=== PATIENT | female | born 1985 | race Hispanic/Latino ===

== ENCOUNTER 2017-07-20 21:21 | Emergency (ER) | payer SELFPAY ==
[~2017-07-20] VITALS: Ht 157.5 cm; Wt 117.9 kg
== END 2017-07-20 21:55 | disposition left against medical advice (07) ==
LOC: FSED 21:21
DX: N93.9 Abnormal uterine and vaginal bleeding, unspecified (principal)

== ENCOUNTER 2021-04-17 14:05 | Emergency (ER) | payer OTHER ==
[~2021-04-17] VITALS: Ht 157.5 cm; Wt 146.1 kg
[2021-04-17] MEDS ORDERED: IBUPROFEN 600 MG TAB PO STA (14:38)
[2021-04-17] MEDS ORDERED: NIFEDIPINE ER30 M1 PO (14:54)
[2021-04-17] MEDS ORDERED: IBUPROFEN 600 MG TAB ONE (15:00)
[2021-04-17] MEDS ORDERED: CYCLOBENZAPRINE5 MG PO (16:29)
== END 2021-04-17 16:51 | disposition home or self-care (01) ==
LOC: FSED 14:25
DX: M54.2 Cervicalgia (principal); M54.50 Low back pain, unspecified; M25.511 Pain in right shoulder; V43.62XA Car passenger injured in collision with other type car in traffic accident, initial encounter; Y92.488 Other paved roadways as the place of occurrence of the external cause; E11.9 Type 2 diabetes mellitus without complications
CPT/HCPCS: 72040; 72100; 81025; 99283

== ENCOUNTER 2024-01-06 02:45 | Emergency (ER) | payer OTHER ==
[~2024-01-06] VITALS: Ht 157.5 cm; Wt 110.7 kg
[~2024-01-06 02:45] MED LIST: CYCLOBENZAPRINE5 MG PO; HUMALOG100 UNIT/1; HUMULIN R100 UNIT/2 INJ; NIFEDIPINE ER30 M1 PO; ULTRAM 50MG50 MG PO
[2024-01-06 02:50] VITALS: PULSE 82; RESP 18; TEMP 97.4
[2024-01-06] MEDS ORDERED: METHOCARBAMOL500 MG PO (03:32)
[2024-01-06] MEDS ORDERED: KETOROLAC TROME10 MG PO (03:32)
[2024-01-06] MEDS: KETOROLAC TROMETHAMINE 60 MG/2 ML VIAL IM ONE (03:39)
[2024-01-06 04:13] VITALS: BP 156/84; PULSE 71; RESP 18; TEMP 98.3; O2SAT 98
== END 2024-01-06 04:16 | disposition home or self-care (01) ==
LOC: FSED 03:02
DX: S39.012A Strain of muscle, fascia and tendon of lower back, initial encounter (principal); M25.552 Pain in left hip; X50.1XXA Overexertion from prolonged static or awkward postures, initial encounter; Y93.01 Activity, walking, marching and hiking; Y99.0 Civilian activity done for income or pay; I10 Essential (primary) hypertension; E11.9 Type 2 diabetes mellitus without complications; E66.9 Obesity, unspecified
CPT/HCPCS: 72100; 73502; 99283; J1885